=== PATIENT | female | born 2000 | race Caucasian/White ===

== ENCOUNTER 2019-09-09 15:31 | Emergency (ER) | payer OTHER ==
[~2019-09-09] VITALS: Ht 157.4 cm; Wt 63.5 kg
[2019-09-09] MEDS ORDERED: CYCLOBENZAPRINE5 M3 PO (17:30)
[2019-09-09] MEDS ORDERED: MEDROL DOSEPAK4 MG PO (17:30)
== END 2019-09-09 18:07 | disposition home or self-care (01) ==
LOC: ED 15:31
DX: S29.012A Strain of muscle and tendon of back wall of thorax, initial encounter (principal); S16.1XXA Strain of muscle, fascia and tendon at neck level, initial encounter; X58.XXXA Exposure to other specified factors, initial encounter; Y93.89 Activity, other specified; Y92.89 Other specified places as the place of occurrence of the external cause; Y99.8 Other external cause status

== ENCOUNTER → 2019-10-25 | Outpatient (CLI) | payer OTHER ==
[~2019-10-25] MED LIST: CYCLOBENZAPRINE5 M3 PO; MEDROL DOSEPAK4 MG PO
== END | disposition home or self-care (01) ==
LOC: MRI 10:48
DX: M47.812 Spondylosis without myelopathy or radiculopathy, cervical region (principal)

== ENCOUNTER → 2020-07-19 | Outpatient (CLI) | payer OTHER ==
[2020-07-19 11:26] LABS: BASO % 0.4 % (0.0-1.0); EOS # 0.1 10*3/uL (0.0-0.4); HEMATOCRIT 38.9 % (37.0-47.0); LYMPH # 1.7 10*3/uL (1.3-4.4); LYMPH % 23.9 % (27.0-41.0); MEAN CELL VOLUME 87.8 fl (81.0-99.0); MEAN CORPUSCULAR HGB 30.9 pg (27.0-31.0); MEAN CORPUSCULAR HGB CONC 35.2 g/dl (33.0-37.0); MEAN PLATELET VOLUME 9.3 fl (9.6-12.3); MONO # 0.6 10*3/uL (0.1-1.0); MONO % 8.1 % (3.0-9.0); NEUT # 4.8 10*3/uL (2.3-7.9); NEUT % 66.2 % (47.0-73.0); PLATELET COUNT AUTOMATED 210 10*3/uL (130-400); RED BLOOD COUNT 4.43 10*6/uL (4.10-5.10); WHITE BLOOD COUNT 7.3 10*3/uL (4.8-10.8)
[2020-07-19 11:41] LABS: ALBUMIN 4.2 gm/dl (3.1-4.5); ALKALINE PHOSPHATASE 72 U/L (45-117); BILIRUBIN, DIRECT 0.1 mg/dL (0.0-0.2); CHOLESTEROL 164 mg/dL (<200); HDL CHOLESTEROL 59 mg/dl (40-60); LDL CHOLESTEROL 87 mg/dL (9-159); SGOT/AST 18 IU/L (3-35); SGPT/ALT 19 U/L (12-78); VLDL CHOLESTEROL 18 mg/dL (6-40)
[2020-07-19 11:43] LABS: B-hCG (QUALITATIVE) NEGATIVE (NEGATIVE)
== END | disposition home or self-care (01) ==
LOC: LAB 11:00
DX: L70.0 Acne vulgaris (principal)

== ENCOUNTER → 2020-08-07 | Outpatient (CLI) | payer OTHER | END | disposition home or self-care (01) | LOC: US 01:08 | PROVIDERS: ATTEND Internal Medicine Gastroenterology | DX: R10.13 Epigastric pain (principal) ==

== ENCOUNTER → 2020-08-23 | Outpatient (CLI) | payer OTHER ==
[2020-08-23 10:25] LABS: BASO % 0.3 % (0.0-1.0); EOS # 0.1 10*3/uL (0.0-0.4); EOS % 1.1 % (1.0-4.0); HEMATOCRIT 40.8 % (37.0-47.0); LYMPH # 1.6 10*3/uL (1.3-4.4); LYMPH % 25.8 % (27.0-41.0); MEAN CELL VOLUME 87.7 fl (81.0-99.0); MEAN CORPUSCULAR HGB 30.1 pg (27.0-31.0); MEAN CORPUSCULAR HGB CONC 34.3 g/dl (33.0-37.0); MEAN PLATELET VOLUME 9.5 fl (9.6-12.3); MONO # 0.5 10*3/uL (0.1-1.0); MONO % 8.7 % (3.0-9.0); NEUT # 3.9 10*3/uL (2.3-7.9); NEUT % 63.8 % (47.0-73.0); PLATELET COUNT AUTOMATED 204 10*3/uL (130-400); RED BLOOD COUNT 4.65 10*6/uL (4.10-5.10); RED CELL DISTRI WIDTH 11.8 % (0-14.5); WHITE BLOOD COUNT 6.2 10*3/uL (4.8-10.8)
[2020-08-23 10:43] LABS: ALBUMIN 4.2 gm/dl (3.1-4.5); ALKALINE PHOSPHATASE 73 U/L (45-117); BILIRUBIN, DIRECT 0.1 mg/dL (0.0-0.2); CHOLESTEROL 201 mg/dL (<200); HDL CHOLESTEROL 61 mg/dl (40-60); LDL CHOLESTEROL 110 mg/dL (9-159); SGOT/AST 26 IU/L (3-35); SGPT/ALT 20 U/L (12-78); TOTAL PROTEIN 8.2 gm/dL (6.4-8.2); TRIGLYCERIDES 149 mg/dl (<150); VLDL CHOLESTEROL 30 mg/dL (6-40)
[2020-08-23 10:48] LABS: BETA-HCG, QUANT < 1.0 mIU/mL (1-3)
== END | disposition home or self-care (01) ==
LOC: LAB 09:47
PROVIDERS: ATTEND Dermatology
DX: L70.0 Acne vulgaris (principal); Z79.899 Other long term (current) drug therapy

== ENCOUNTER → 2020-09-28 | Outpatient (CLI) | payer OTHER ==
[2020-09-28 15:15] LABS: BASO % 0.5 % (0.0-1.0); EOS # 0.1 10*3/uL (0.0-0.4); HEMATOCRIT 40.4 % (37.0-47.0); LYMPH # 1.7 10*3/uL (1.3-4.4); LYMPH % 28.4 % (27.0-41.0); MEAN CELL VOLUME 87.1 fl (81.0-99.0); MEAN CORPUSCULAR HGB CONC 34.4 g/dl (33.0-37.0); MEAN PLATELET VOLUME 9.3 fl (9.6-12.3); MONO # 0.6 10*3/uL (0.1-1.0); MONO % 10.3 % (3.0-9.0); NEUT # 3.6 10*3/uL (2.3-7.9); NEUT % 59.5 % (47.0-73.0); PLATELET COUNT AUTOMATED 202 10*3/uL (130-400); RED BLOOD COUNT 4.64 10*6/uL (4.10-5.10); RED CELL DISTRI WIDTH 11.7 % (0-14.5)
[2020-09-28 15:46] LABS: ALBUMIN 4.2 gm/dl (3.1-4.5); ALKALINE PHOSPHATASE 75 U/L (45-117); BILIRUBIN, DIRECT 0.1 mg/dL (0.0-0.2); CHOLESTEROL 200 mg/dL (<200); HDL CHOLESTEROL 59 mg/dl (40-60); LDL CHOLESTEROL 111 mg/dL (9-159); SGOT/AST 17 IU/L (3-35); SGPT/ALT 18 U/L (12-78); TRIGLYCERIDES 152 mg/dl (<150); VLDL CHOLESTEROL 30 mg/dL (6-40)
[2020-09-28 15:47] LABS: BETA-HCG, QUANT < 1.0 mIU/mL (1-3)
== END | disposition home or self-care (01) ==
LOC: LAB 14:52
PROVIDERS: ATTEND Dermatology
DX: L70.0 Acne vulgaris (principal); Z79.899 Other long term (current) drug therapy

== ENCOUNTER → 2020-11-01 | Outpatient (CLI) | payer OTHER ==
[2020-11-01 10:38] LABS: BASO % 0.6 % (0.0-1.0); EOS % 0.8 % (1.0-4.0); HEMATOCRIT 39.6 % (37.0-47.0); LYMPH # 1.7 10*3/uL (1.3-4.4); LYMPH % 31.2 % (27.0-41.0); MEAN CORPUSCULAR HGB 30.3 pg (27.0-31.0); MEAN CORPUSCULAR HGB CONC 34.8 g/dl (33.0-37.0); MEAN PLATELET VOLUME 9.5 fl (9.6-12.3); MONO # 0.4 10*3/uL (0.1-1.0); MONO % 8.3 % (3.0-9.0); NEUT # 3.1 10*3/uL (2.3-7.9); NEUT % 58.7 % (47.0-73.0); PLATELET COUNT AUTOMATED 210 10*3/uL (130-400); RED BLOOD COUNT 4.55 10*6/uL (4.10-5.10); RED CELL DISTRI WIDTH 11.8 % (0-14.5); WHITE BLOOD COUNT 5.3 10*3/uL (4.8-10.8)
[2020-11-01 11:08] LABS: ALBUMIN 4.1 gm/dl (3.1-4.5); ALKALINE PHOSPHATASE 66 U/L (45-117); BILIRUBIN, DIRECT 0.1 mg/dL (0.0-0.2); CHOLESTEROL 217 mg/dL (<200); HDL CHOLESTEROL 63 mg/dl (40-60); LDL CHOLESTEROL 134 mg/dL (9-159); SGOT/AST 19 IU/L (3-35); SGPT/ALT 20 U/L (12-78); TRIGLYCERIDES 99 mg/dl (<150); VLDL CHOLESTEROL 20 mg/dL (6-40)
[2020-11-01 11:23] LABS: BETA-HCG, QUANT < 1.0 mIU/mL (1-3)
== END | disposition home or self-care (01) ==
LOC: LAB 10:17
PROVIDERS: ATTEND Dermatology
DX: L70.0 Acne vulgaris (principal); Z79.899 Other long term (current) drug therapy

== ENCOUNTER → 2020-12-01 | Outpatient (CLI) | payer OTHER | END | disposition home or self-care (01) | LOC: LAB 08:08 | PROVIDERS: ATTEND Dermatology | DX: Z79.899 Other long term (current) drug therapy (principal) ==

== ENCOUNTER → 2020-12-28 | Outpatient (CLI) | payer OTHER | END | disposition home or self-care (01) | LOC: LAB 14:11 | PROVIDERS: ATTEND Dermatology | DX: L70.0 Acne vulgaris (principal); L85.3 Xerosis cutis; R04.0 Epistaxis; Z79.899 Other long term (current) drug therapy ==

== ENCOUNTER → 2021-03-15 | Outpatient (CLI) | payer OTHER ==
[2021-03-15 11:01] LABS: ALBUMIN 3.6 gm/dl (3.1-4.5); ALKALINE PHOSPHATASE 90 U/L (45-117); BETA-HCG, QUANT < 1.0 mIU/mL (1-3); BILIRUBIN, DIRECT 0.1 mg/dL (0.0-0.2); CHOLESTEROL 192 mg/dL (<200); LDL CHOLESTEROL 105 mg/dL (9-159); SGOT/AST 22 IU/L (3-35); SGPT/ALT 21 U/L (12-78); TOTAL PROTEIN 7.3 gm/dL (6.4-8.2); TRIGLYCERIDES 110 mg/dl (<150)
[2021-03-15 11:02] LABS: BASO % 0.4 % (0.0-1.0); EOS # 0.2 10*3/uL (0.0-0.4); EOS % 2.1 % (1.0-4.0); HEMATOCRIT 37.8 % (37.0-47.0); LYMPH # 2.6 10*3/uL (1.3-4.4); LYMPH % 35.6 % (27.0-41.0); MEAN CELL VOLUME 91.3 fl (81.0-99.0); MEAN CORPUSCULAR HGB 31.4 pg (27.0-31.0); MEAN CORPUSCULAR HGB CONC 34.4 g/dl (33.0-37.0); MEAN PLATELET VOLUME 10.3 fl (9.6-12.3); MONO # 0.8 10*3/uL (0.1-1.0); MONO % 10.3 % (3.0-9.0); NEUT # 3.7 10*3/uL (2.3-7.9); NEUT % 51.1 % (47.0-73.0); PLATELET COUNT AUTOMATED 197 10*3/uL (130-400); RED BLOOD COUNT 4.14 10*6/uL (4.10-5.10); RED CELL DISTRI WIDTH 12.1 % (0-14.5); WHITE BLOOD COUNT 7.3 10*3/uL (4.8-10.8)
[2021-03-16 11:06] LABS: LDL CHOLESTEROL (DIRECT) 109 mg/dL (0-99)
== END | disposition home or self-care (01) ==
LOC: LAB 10:42
PROVIDERS: ATTEND Dermatology
DX: L85.3 Xerosis cutis (principal); L70.0 Acne vulgaris; K13.0 Diseases of lips; L90.5 Scar conditions and fibrosis of skin; Z79.899 Other long term (current) drug therapy

== ENCOUNTER 2021-07-10 11:57 | Emergency (ER) | payer OTHER ==
[~2021-07-10] VITALS: Ht 157.4 cm; Wt 63.5 kg
[2021-07-10] MEDS ORDERED: CYCLOBENZAPRINE5 M3 PO (17:20)
[2021-07-10] MEDS ORDERED: Motrin,Rufen800 MG PO (17:20)
[2021-07-10] MEDS ORDERED: MEDROL DOSEPAK4 MG PO (17:20)
== END 2021-07-10 17:47 | disposition home or self-care (01) ==
LOC: ED 11:57
DX: S46.912A Strain of unspecified muscle, fascia and tendon at shoulder and upper arm level, left arm, initial encounter (principal); X50.1XXA Overexertion from prolonged static or awkward postures, initial encounter; Y93.89 Activity, other specified; Y92.89 Other specified places as the place of occurrence of the external cause; Y99.8 Other external cause status

== ENCOUNTER → 2022-03-06 | Outpatient (CLI) | payer OTHER ==
[~2022-03-06] MED LIST changes: +Motrin,Rufen800 MG PO
== END | disposition home or self-care (01) ==
LOC: LAB 10:24
PROVIDERS: ATTEND Family Medicine
DX: Z01.84 Encounter for antibody response examination (principal)